=== PATIENT | male | born 1995 | race Caucasian/White ===

== ENCOUNTER 2017-03-29 14:03 | Outpatient (CLI) | payer MEDICAID | END 2017-03-29 14:04 | disposition critical access hospital (66) | LOC: EMS 14:03 | PROVIDERS: ATTEND Surgery | DX: T17.928A Food in respiratory tract, part unspecified causing other injury, initial encounter (principal); X58.XXXA Exposure to other specified factors, initial encounter; Y93.89 Activity, other specified; Y92.019 Unspecified place in single-family (private) house as the place of occurrence of the external cause | CPT/HCPCS: A0425; A0429 ==

== ENCOUNTER 2017-03-29 14:23 | Emergency (ER) | payer MEDICAID ==
--- NOTE | 2017-03-29 14:24 | ED Physician Documentation ---
PD HPI DYSPNEA - Stated complaint Stated Complaint: SP CHOKE - History obtained from History obtained from: Patient, Family (sister) - History of Present Illness Timing - onset: How many minutes ago (30), Today Timing - onset during: Eating (he was eating a peach and got some caught in throat. He was able to make weak coughing sounds only. He gestured to family members that he was choking. Father did Heimlich on abdomen a few times, and the food came up as the patient was starting to feel weak and slump. Sister says the patient did not obviously turn blue nor dusky. He is feeling okay once food was out. EMS had been called and they found him to be breathing and speaking okay. They brought him in for evaluation. He is feeling okay enroute.) Timing - details: Abrupt onset, Now resolved Inciting event(s): FB / choking Review of Systems Throat: denies: Sore throat Cardiac: denies: Chest pain / pressure Respiratory: denies: Cough GI: denies: Abdominal Pain, Vomiting, Diarrhea PD PAST MEDICAL HISTORY - Past Medical History Cardiovascular: None Respiratory: None - Present Medications Home Medications: Ambulatory Orders Medication Instructions Recorded Confirmed No Known Home Medications [No 03/29/17 03/29/17 Known Home Medications] - Allergies Allergies/Adverse Reactions: Allergies Allergy/AdvReac Type Severity Reaction Status Date / Time No Known Drug Allergies Allergy Verified 03/29/17 14:35 PD ED PE NORMAL - Vitals Vital signs reviewed: Yes - General General: Alert and oriented X 3, No acute distress, Well developed/nourished - Cardiac Cardiac: RRR, No murmur - Respiratory Respiratory: Clear bilaterally, Other (no chestwall tenderness.) - Abdomen Abdomen: Normal bowel sounds, Soft, Non tender - Neuro Neuro: Alert and oriented X 3, No motor deficit, Normal speech Results - Vitals Vitals: Oxygen O2 Source Room air Departure - Departure Disposition: 01 Home, Self Care Clinical Impression: Choking due to food in larynx Qualifiers: Encounter type: initial encounter Qualified Code(s): T17.320A - Food in larynx causing asphyxiation, initial encounter Condition: Stable Record reviewed to determine appropriate education?: Yes Instructions: ED Obstruction Airway Removed Comments: Soft food today. Otherwise usual activity. Discharge Date/Time: 03/29/17 15:17
[2017-03-29 14:35] VITALS: BP 107/64
== END 2017-03-29 15:17 | disposition home or self-care (01) ==
LOC: EDUNIT# → ED 14:23
DX: T17.320A Food in larynx causing asphyxiation, initial encounter (principal); X58.XXXA Exposure to other specified factors, initial encounter; Y93.89 Activity, other specified
CPT/HCPCS: 99283